=== PATIENT | male | born 1970 | race Caucasian/White ===

== ENCOUNTER 2016-12-26 08:54 | Emergency (ER) | payer OTHER | END 2016-12-26 10:29 | disposition home or self-care (01) | LOC: ED 08:54 | DX: S61.210A Laceration without foreign body of right index finger without damage to nail, initial encounter (principal); S61.212A Laceration without foreign body of right middle finger without damage to nail, initial encounter; S61.214A Laceration without foreign body of right ring finger without damage to nail, initial encounter; S61.216A Laceration without foreign body of right little finger without damage to nail, initial encounter; W45.8XXA Other foreign body or object entering through skin, initial encounter ==